=== PATIENT | male | born 1980 | race Caucasian/White ===

== ENCOUNTER 2017-12-08 09:17 | Day surgery (SDC) | payer OTHER ==
[2017-12-05 14:36] VITALS: BMI 26.3
[~2017-12-08 09:17] MED LIST: ACETAMINOPHEN TAB 500 MG TAB PO ONE; DEXAMETHASONE SOD PHOSPHATE 10 MG/ML 1 ML VIAL IV ONE; LACTATED RINGERS 1,000 ML IV SCH; LIDOCAINE 1% 20 ML VIAL (10MG/ML) FOR IV START INTRADERMA PRN; MIDAZOLAM 2 MG/2 ML VIAL IV PRN; ONDANSETRON 4 MG/2 ML VIAL IVP ONE; ceFAZolin IN SWFI 2 GM/20 ML SYRINGE IVP ONE; fentaNYL (PF) 50 MCG/ML 2 ML AMP IV PRN
[2017-12-08] MEDS ORDERED: ROCURONIUM BROMIDE 10 MG/ML 10 ML VIAL IV ONE (11:45)
[2017-12-08] MEDS ORDERED: LIDOCAINE 1% INJ 10MG/ML (20 ML MDV) ONE (11:45)
[2017-12-08] MEDS ORDERED: HYDROmorphone (PF) 1 MG/ML ONE (11:45)
[2017-12-08] MEDS ORDERED: PHENYLEPHRINE-0.9% NACL SYG 1 MG/10 ML SYRINGE ONE (11:45)
[2017-12-08] MEDS ORDERED: PROPOFOL 10 MG/ML 20 ML VIAL IV ONE (11:45)
[2017-12-08] MEDS ORDERED: GLYCOPYRROLATE 0.2 MG/ML 2 ML VIAL ONE (11:45)
[2017-12-08] MEDS ORDERED: MIDAZOLAM 2 MG/2 ML VIAL ONE (11:45)
[2017-12-08] MEDS ORDERED: NEOSTIGMINE 1 MG/ML 10 ML VIAL ONE (11:45)
[2017-12-08] MEDS ORDERED: fentaNYL (PF) 50 MCG/ML 2 ML AMP ONE (11:45)
[2017-12-08] MEDS ORDERED: SUCCINYLCHOLINE CHLORIDE 100 MG/5 ML SYR IV ONE (11:45)
[2017-12-08] MEDS ORDERED: ceFAZolin 1,000 MG in SODIUM CHLORIDE 0.9% 1,000 ML IRRIGATION ONE (12:27)
[2017-12-08] MEDS ORDERED: LACTATED RINGERS 1,000 ML IV ONE (12:50)
[2017-12-08 13:28] VITALS: TEMP 97
[2017-12-08] MEDS ORDERED: HYDROmorphone 1 MG/ML 1 ML SYRINGE IVP ONE ×2 (13:33→13:38)
[2017-12-08] MEDS ORDERED: ONDANSETRON 4 MG/2 ML VIAL IVP ONE (13:39)
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
[2017-12-08 14:04] VITALS: RESP 16
[2017-12-08] MEDS ORDERED: HYDROcodone/APAP 5-325MG 1 EACH TAB PO ONE (14:50)
[2017-12-08 16:15] VITALS: BP 119/84; PULSE 63
== END 2017-12-08 17:00 | disposition home or self-care (01) ==
LOC: OR 09:17
PROVIDERS: ATTEND Orthopaedic Surgery Sports Medicine
DX: S42.022A Displaced fracture of shaft of left clavicle, initial encounter for closed fracture (principal); V19.9XXA Pedal cyclist (driver) (passenger) injured in unspecified traffic accident, initial encounter; Y93.55 Activity, bike riding; Z91.041 Radiographic dye allergy status; Z91.013 Allergy to seafood
CPT/HCPCS: 23515; C1713; J2250; J1100; J2710; J2405; J0690 ×2; J2001; J3010; J1170; J2370; J0330; J2704

== ENCOUNTER → 2019-04-02 | Outpatient (CLI) | payer BC ==
[2019-04-02 18:34] LABS: Shrimp IgE <0.10 kU/L; Soybean IgE <0.10 kU/L; Walnut IgE (Food) <0.10 kU/L
[2019-04-03 13:25] LABS: Crab IgE <0.10 kU/L (<0.10); Crab IgE Class CLASS 0; Lettuce IgE Class CLASS 0; Salmon IgE <0.10 kU/L (<0.10); Salmon IgE Class CLASS 0; Yeast Bakers/Brew IgE <0.10 kU/L (<0.10); Yeast Bakers/Brew IgE Class CLASS 0
[2019-04-03 13:26] LABS: Apple IgE Class CLASS 0; Celery IgE <0.10 kU/L (<0.10); Celery IgE Class CLASS 0; Egg Yolk IgE Class CLASS 0; Lobster IgE <0.10 kU/L (<0.10); Lobster IgE Class CLASS 0; Oat IgE Class CLASS 0; Onion IgE <0.10 kU/L (<0.10); Onion IgE Class CLASS 0
[2019-04-03 13:27] LABS: Avocado Class CLASS 0; Banana IgE Class CLASS 0; Chocolate IgE Class CLASS 0; Coffee IgE <0.10 kU/L (<0.10); Coffee IgE Class CLASS 0; Cow's Milk IgE Class CLASS 0; Egg White IgE <0.10 kU/L (<0.10); Hazelnut IgE <0.10 kU/L (<0.10); Hazelnut IgE Class CLASS 0; Kiwi IgE <0.10 kU/L (<0.10); Kiwi IgE Class CLASS 0; Latex IgE Class CLASS 0; Peanut IgE <0.10 kU/L (<0.10); Potato IgE <0.10 kU/L (<0.10); Potato IgE Class CLASS 0; Soybean IgE <0.10 kU/L (<0.10)
[2019-04-03 13:28] LABS: Tea IgE <0.10 kU/L (<0.10); Tea IgE Class CLASS 0
== END | disposition home or self-care (01) ==
LOC: LABWHC1 10:06
PROVIDERS: ATTEND Otolaryngology
DX: L50.0 Allergic urticaria (principal)
CPT/HCPCS: 36415; 86003

== ENCOUNTER → 2021-06-29 | Outpatient (CLI) | payer BC ==
--- NOTE | 2021-06-29 11:45 | US ---
EXAMINATION TYPE: US thyroid st tissue head/neck DATE OF EXAM: 06/29/2021 COMPARISON: NONE CLINICAL HISTORY: R59.0 ENLARGED LYMPHNODES. Patient states having hx of throat abscess. Patient sta ashley throat pain. During well visit appt, patient states enlarged lymph nodes were felt. Left neck p ain. No recent covid vaccine. Bilateral neck scanned. Lymph nodes seen with short axis measurements documented: 1- Lateral right neck= 0.9 cm 2- Superior right neck= 0.8 cm 3- Lateral left neck= 0.8 cm 4- Superior left neck= 0.8 cm IMPRESSION: Small normal-appearing lymph nodes seen bilaterally.
== END | disposition home or self-care (01) ==
LOC: RADUSWWP 10:53
PROVIDERS: ATTEND Family Medicine
DX: R59.0 Localized enlarged lymph nodes (principal)
CPT/HCPCS: 76536

== ENCOUNTER 2022-12-01 08:42 | Emergency (ER) | payer BC ==
[2022-12-01] MEDS ORDERED: SODIUM CHLORIDE 0.9% 1,000 ML IV STA (09:26)
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
[2022-12-01 10:02] LABS: Basophils % (A) 0 %; Eosinophils # (A) 0.2 k/uL (0-0.7); Eosinophils % (A) 3 %; HGB 15.7 gm/dL (13.0-17.5); Lymphocytes # (A) 1.4 k/uL (1.0-4.8); Lymphocytes % (A) 22 %; MCH 28.5 pg (25.0-35.0); MCHC 34.1 g/dL (31.0-37.0); MCV 83.6 fL (80.0-100.0); Mean Platelet Volume 6.9; Monocytes # (A) 0.4 k/uL (0-1.0); Monocytes % (A) 6 %; Neutrophils # (A) 4.3 k/uL (1.3-7.7); Neutrophils % (A) 68 %; Platelet Count 207 k/uL (150-450); RBC 5.51 m/uL (4.30-5.90); RDW 12.3 % (11.5-15.5); WBC 6.4 k/uL (3.8-10.6)
[2022-12-01 10:07] LABS: Appearance,Urine Clear (Clear); Bilirubin,Urine Negative (Negative); Blood,Urine Negative (Negative); Color,Urine Light Yellow; Glucose,Urine (UA) Negative (Negative); Ketones,Urine Negative (Negative); Leukocyte Esterase,Urine Negative (Negative); Nitrite,Urine Negative (Negative); Protein,Urine Negative (Negative); Specific Gravity,Urine 1.021 (1.001-1.035); Urobilinogen,Urine <2.0 mg/dL (<2.0)
[2022-12-01 10:14] LABS: ALT 35 U/L (4-49); AST 27 U/L (17-59); African American GFR (CKD) >90 (>60 ml/min/1.73 sqM); Albumin 4.4 g/dL (3.5-5.0); Alkaline Phosphatase 64 U/L (38-126); Anion Gap 7 mmol/L; Blood Urea Nitrogen 20 mg/dL (9-20); Calcium 9.4 mg/dL (8.4-10.2); Carbon Dioxide 26 mmol/L (22-30); Chloride 108 mmol/L (98-107); Glucose 90 mg/dL (74-99); Lipase 135 U/L (23-300); Non-African American GFR(CKD) >90 (>60 ml/min/1.73 sqM); Potassium 4.4 mmol/L (3.5-5.1); Sodium 141 mmol/L (137-145); Total Bilirubin 0.7 mg/dL (0.2-1.3); Total Protein 7.5 g/dL (6.3-8.2)
--- NOTE | 2022-12-01 10:40 | CT ---
EXAMINATION TYPE: CT abdomen pelvis w con CT DLP: 1267.5 mGycm, Automated exposure control for dose reduction was used. DATE OF EXAM: 12/01/2022 10:28 AM COMPARISON: None CLINICAL INDICATION:Male, 42 years old with history of RLQ pain; RLQ pain TECHNIQUE: Axial CT of the abdomen and pelvis. Sagittal and coronal reformats were created on a Dexetra workstation. Contrast used:100 ml mL of Isovue 300 with IV Contrast, (none if empty) Oral contrast used: without Oral Contrast (none if empty) FINDINGS: LOWER CHEST: Unremarkable ABDOMEN LIVER: Diffusely hypoattenuating parenchyma. GALLBLADDER AND BILE DUCTS: The gallbladder is distended. There is suspected fundal adenomyomatosis. PANCREAS: Unremarkable. SPLEEN: Unremarkable. ADRENAL GLANDS: Unremarkable. KIDNEYS AND URETERS: No evidence of hydronephrosis or renal calculus. The ureters are unremarkable. PELVIS BLADDER: Unremarkable REPRODUCTIVE: Unremarkable. ABDOMEN & PELVIS STOMACH AND BOWEL: No evidence of bowel obstruction. The appendix is visualized and contains some fec es. No evidence for acute inflammation. Submucosal fat deposition within the cecum. The terminal ileu m appears within normal limits. Moderate amount of stool throughout the distal colon. PERITONEUM/RETROPERITONEUM: No evidence of pneumoperitoneum or free fluid. VASCULATURE: No evidence of aortic aneurysm. MUSCULOSKELETAL: No acute osseous abnormalities LYMPH NODES: No gross evidence for lymphadenopathy. SOFT TISSUE/ABDOMINAL WALL: Fat-containing umbilical hernia. IMPRESSION: No evidence of obstructive uropathy or renal calculus. The appendix appears within normal limits with feces near the base.
[2022-12-01 11:20] VITALS: BP 135/83; PULSE 50; RESP 16; TEMP 98
== END 2022-12-01 11:21 | disposition home or self-care (01) ==
LOC: EC 08:42
DX: R10.9 Unspecified abdominal pain (principal); Z88.0 Allergy status to penicillin
CPT/HCPCS: 36415; 80053; 83605; 83690; 85025; 81003; 74177; 99284; 96360; Q9967

== ENCOUNTER → 2023-03-08 | Outpatient (CLI) | payer BC ==
[2023-03-08 16:31] LABS: Rheumatoid Factor, Qnt <15 IU/mL (0-15)
== END | disposition home or self-care (01) ==
LOC: LABWHC1 10:45
PROVIDERS: ATTEND Otolaryngology
DX: Z00.00 Encounter for general adult medical examination without abnormal findings (principal); R60.9 Edema, unspecified
CPT/HCPCS: 36415; 84443; 86038; 86376; 86431

== ENCOUNTER → 2023-03-16 | Outpatient (CLI) | payer BC ==
--- NOTE | 2023-03-22 17:22 | CT ---
EXAMINATION TYPE: CT soft tissue neck w con DATE OF EXAM: 03/16/2023 COMPARISON: 05/27/2014 and ultrasound 06/29/2021 HISTORY: 42-year-old male R22.1, sore throat x 4 months TECHNIQUE: Contiguous axial scanning of the soft tissues of the neck performed with IV Contrast, isatu ent injected with 100 cc mL of Isovue 300. Coronal and sagittal reconstructions performed. CT DLP: 589.9 mGycm Automated exposure control for dose reduction was used. FINDINGS: Visualized intracranial structures, orbits and globes are clear. Rightward nasal septal deviation. Mi ld mucosal thickening scattered within the ethmoid air cells. Small amount of fluid within the inferior left mastoid air cells. Some mild hypertrophy of the adenoid soft tissues. Moderate to severe hypertrophy of the bilateral lingual tonsils redemonstrated. Epiglottis and prevertebral soft tissues are satisfactory. The glottic and subglottic structures as well as the tracheal column and visualized upper lungs are c lear. The thyroid gland and submandibular glands are satisfactory. Scattered prominent lymph nodes are present on both sides of the neck measuring up to 7 mm in the lef t parotid tail, 6 mm left submental space, 8 mm left posterior triangle of the neck, and up to 1.2 cm short axis within the upper neck on either side. Findings remain unchanged from 05/27/2014 suggesting a chronic reactive/post inflammatory etiology. No obvious enlarging adenopathy is seen. Bones: No osseous destructive process. IMPRESSION: 1. MODERATE TO SEVERE LINGUAL TONSILLAR HYPERTROPHY. PROBABLY POSTINFLAMMATORY LYMPHOID PROLIFERATION . CONSIDER DIRECT INSPECTION AND CLINICAL FOLLOW-UP. 2. SCATTERED PROMINENT LYMPH NODES WITHIN THE UPPER NECK MEASURING UP TO 1.2 CM REMAIN UNCHANGED FROM 2014, AND ARE NONENLARGED BY SIZE CRITERIA, SUGGESTING A BENIGN ETIOLOGY.
== END | disposition home or self-care (01) ==
LOC: RADCTMAIN 17:00
PROVIDERS: ATTEND Otolaryngology
DX: J35.1 Hypertrophy of tonsils (principal); R59.0 Localized enlarged lymph nodes
CPT/HCPCS: 70491; Q9967